=== PATIENT | female | born 1980 | race Two or more races ===

== ENCOUNTER 2020-08-12 21:19 | Emergency (ER) | payer MEDICAID ==
[~2020-08-12] VITALS: Ht 154.9 cm; Wt 77.1 kg
[2020-08-12 22:24] LABS: Basophils # (auto) 0.1 10 ^3/uL (0-0.2); Basophils % (auto) 0.7 % (0.0-2.0); Eosinophils # (auto) 0.2 10 ^3/uL (0-0.8); Hematocrit 39.6 % (36.0-46.0); Hemoglobin 13.8 g/dL (12.2-16.2); Lymphocytes # (auto) 2.4 10 ^3/uL (0.4-5.4); Lymphocytes % (auto) 21.1 % (10.0-50.0); Mean Corpuscular Hemoglobin 32.3 pg (28.0-32.0); Mean Corpuscular Hgb Conc. 34.8 g/dL (32.0-36.0); Mean Corpuscular Volume 92.8 fL (80.0-100.0); Monocytes # (auto) 0.8 10 ^3/uL (0-1.3); Monocytes % (auto) 7.1 % (0.0-12.0); Neutrophils # (auto) 7.9 10 ^3/uL (1.6-8.6); Neutrophils % (auto) 69.1 % (37.0-80.0); Platelet Count (auto) 365 10^3/uL (140-450); Red Blood Cells 4.27 10^6/uL (4.0-5.20); Red Cell Distribution Width 12.8 % (11.8-14.3); White Blood Cell 11.5 10^3/uL (4.4-10.8)
[2020-08-12 22:39] LABS: Chloride 108 mmol/L (98-107); Potassium 3.9 mmol/L (3.5-5.1); Sodium 140 mmol/L (136-145)
[2020-08-12 22:49] LABS: Alanine Aminotransferase 19 U/L (13-56); Albumin 3.9 g/dL (3.4-5.0); Alkaline Phosphatase 97 U/L (45-117); Amylase 62 U/L (25-115); Anion Gap 5 (5-15); Aspartate Aminotransferase 15 U/L (15-37); BUN/Creatinine Ratio 15.7; Bilirubin, Total 0.2 mg/dL (0.2-1.0); Blood Urea Nitrogen 13 mg/dL (7-18); Calcium 8.7 mg/dL (8.5-10.1); Carbon Dioxide 27 mmol/L (21-32); GFR African American 98 mL/min; GFR Non-African American 81 mL/min; Glucose 99 mg/dL (74-106); Lipase 186 U/L (73-393); Total Protein 7.7 g/dL (6.4-8.2)
[2020-08-13] MEDS ORDERED: IBUPROFEN 800 MG TAB PO ONE (02:00)
[2020-08-13 02:26] LABS: Urine Bacteria FEW /hpf (None Seen); Urine Blood TRACE /uL (Negative); Urine Mucus FEW (None Seen); Urine Specific Gravity 1.031 (1.001-1.035); Urine WBC 1 /hpf (0 - 5)
[2020-08-13 04:00] VITALS: BP 128/77
[2020-08-13] MEDS ORDERED: cefTRIAXone SOD 1,000 MG VL IM ONE (04:15)
== END 2020-08-13 04:32 | disposition home or self-care (01) ==
LOC: ER 21:19
DX: N70.11 Chronic salpingitis (principal); R10.2 Pelvic and perineal pain; R93.89 Abnormal findings on diagnostic imaging of other specified body structures; Z88.8 Allergy status to other drugs, medicaments and biological substances
CPT/HCPCS: 36415; 76830; 76856; 80053; 81001; 82150; 83690; 84484; 84702; 85025; 85049; 96372; 99284; J0696

== ENCOUNTER 2024-03-03 05:52 | Emergency (ER) | payer MEDICAID ==
[~2024-03-03] VITALS: Ht 154.9 cm; Wt 77.5 kg
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
[2024-03-03 06:35] VITALS: PULSE 99; RESP 14; O2SAT 97
[2024-03-03] MEDS: MORPHINE SULFATE INJ 2 MG/ml SYRG IV ONE (06:55)
[2024-03-03] MEDS: ONDANSETRON HCL 4 MG/2 ML VIAL IV ONE (06:56)
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
[2024-03-03 08:00] VITALS: PULSE 96; RESP 12; O2SAT 94
[2024-03-03 08:40] VITALS: PULSE 99; RESP 15; TEMP 98.7; O2SAT 97
[2024-03-03 09:07] LABS: Urine Bacteria None Seen /hpf (None Seen)
[2024-03-03 09:20] LABS: Urine Blood TRACE /uL (Negative); Urine Clarity Clear (Clear); Urine Color Light-Yellow (Yellow); Urine Protein, UAD Negative (Negative); Urine Specific Gravity 1.022 (1.001-1.035); Urine Squamous Epithelial Cell FEW /hpf (<5); Urine Urobilinogen Normal (Negative); Urine WBC 1 /HPF (0-5); Urine pH 5.5 (5.0-9.0)
[2024-03-03] MEDS: HYDROcodone-ACET 10/325MG TAB PO ONE ×2 (10:05→14:57)
[2024-03-03 10:53] LABS: Basophils # (auto) 0 10 ^3/uL (0-0.2); Basophils % (auto) 0.4 % (0.0-2.0); Eosinophils # (auto) 0.1 10 ^3/uL (0-0.8); Eosinophils % (auto) 1.1 % (0.0-7.0); Hematocrit 39.3 % (36.0-46.0); Hemoglobin 13.3 g/dL (12.2-16.2); Lymphocytes # (auto) 1.3 10 ^3/uL (0.4-5.4); Lymphocytes % (auto) 11.3 % (10.0-50.0); Mean Corpuscular Hemoglobin 31.6 pg (28.0-32.0); Mean Corpuscular Hgb Conc. 33.9 g/dL (32.0-36.0); Mean Corpuscular Volume 93.2 fL (80.0-100.0); Monocytes % (auto) 8.8 % (0.0-12.0); Neutrophils # (auto) 8.8 10 ^3/uL (1.6-8.6); Neutrophils % (auto) 78.4 % (37.0-80.0); Platelet Count (auto) 357 10^3/uL (140-450); Red Blood Cells 4.21 10^6/uL (4.0-5.20); Red Cell Distribution Width 12.9 % (11.8-14.3); White Blood Cell 11.2 10^3/uL (4.4-10.8)
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
[2024-03-03 11:14] LABS: Chloride 106 mmol/L (98-107); Sodium 137 mmol/L (136-145)
[2024-03-03 11:15] LABS: Anion Gap 6 (5-15); Carbon Dioxide 25 mmol/L (20-31)
[2024-03-03 11:16] LABS: Calcium 9.2 mg/dL (8.7-10.4)
[2024-03-03 11:21] LABS: BUN/Creatinine Ratio 13.3 (10.0-20.0); Blood Urea Nitrogen 10 mg/dL (9-23); Glucose 93 mg/dL (74-106)
[2024-03-03] MEDS: IOHEXOL 300 MG/ML 100ML BOTTLE IJ ONE (11:30)
[2024-03-03 12:00] VITALS: BP 133/86; RESP 14; O2SAT 96
[2024-03-03 13:24] VITALS: PULSE 83
== END 2024-03-03 15:13 | disposition short-term general hospital (02) ==
LOC: EDBD 05:52 → ER 05:52
DX: S70.11XA Contusion of right thigh, initial encounter (principal); M79.641 Pain in right hand; M79.18 Myalgia, other site; Z91.040 Latex allergy status; Z88.1 Allergy status to other antibiotic agents; Z90.710 Acquired absence of both cervix and uterus; V89.2XXA Person injured in unspecified motor-vehicle accident, traffic, initial encounter; Y93.89 Activity, other specified; Y92.410 Unspecified street and highway as the place of occurrence of the external cause; Y99.8 Other external cause status
CPT/HCPCS: 36415; 72170; 73030; 73552; 74177; 80048; 81001; 85025; 96374; 99285; J2270; Q9967